=== PATIENT | female | born 1990 | race Hispanic/Latino ===

== ENCOUNTER → 2020-01-10 15:42 | Outpatient (CLI) | payer BC, SELFPAY | PROVIDERS: Referring Provider Otolaryngology; Visit Provider Otolaryngology | DX: Z11.59 Encounter for screening for other viral diseases (principal) | CPT/HCPCS: 87635; C9803; U0003 ==

== ENCOUNTER → 2020-02-06 09:45 | Outpatient (CLI) | payer BC, SELFPAY | PROVIDERS: Referring Provider Otolaryngology; Visit Provider Otolaryngology | DX: Z11.59 Encounter for screening for other viral diseases (principal) | CPT/HCPCS: 87635; C9803; U0003 ==

== ENCOUNTER → 2020-02-12 15:14 | Outpatient (CLI) | payer BC, SELFPAY ==
--- NOTE | 2020-02-12 11:27 | SEP_PTH ---
PATIENT: ANDRE HORTON LOC: [facility] U#:[id number] AGE/SX: 35/F ROOM: RE02/12/[address]: Dr. Vitaly Melissa MD : [id number] BED: DIS: SPEC #: [id number] RECD: 02/12/20 14:54 STATUS: ABBY QUINCY #: [id number] YING: 02/12/20 11:[address]: Vitaly Melissa DEPT: SURGICAL PATHOLOGY RECD BY: Isis Kaur ENTERED: 02/13/20 08:10 SP TYPE: SEPTUM OTHR DR: No Primary Care Phys [facility] Tissues: Nasal septum, NOS Procedures: Decalcification bone/plaque Surgery Specimen Level III HEADER OPERATION: Septoplasty PRE-OP DIAGNOSIS: Acquired deformity of nose, deviated nasal septum, nasal congestion TISSUE SUBMITTED: Nasal septum MICROSCOPIC DIAGNOSIS Nasal septum, septoplasty: Fragments of hyaline cartilage and bone with focal reactive/reparative change (clinically deviated septum). AM:jaqueline 02/16/20 MICROSCOPIC DESCRIPTION Slides are reviewed. GROSS DESCRIPTION Received is one container labeled with the patient's name and not further designated. The specimen consists of multiple irregular fragments of pink-white bone and cartilage that in aggregate measure 5 x 3 x 0.2 cm. The specimen is totally submitted in two cassettes after decalcification. / AM:jaqueline 02/13/20 TC:5 CPT: 35492, 35013
== END ==
PROVIDERS: Referring Provider Otolaryngology; Visit Provider Otolaryngology
DX: M95.0 Acquired deformity of nose (principal); J34.2 Deviated nasal septum
CPT/HCPCS: 88304; 88311